=== PATIENT | male | born 1965 | race African-American/Black ===

== ENCOUNTER 2017-09-17 10:30 | Emergency (ER) | payer OTHER ==
[2017-09-17 10:44] VITALS: BP 132/91
--- NOTE | 2017-09-17 13:32 | Ultrasound Report ---
FINAL REPORT EXAM: US SOFT TISSUE HEAD AND NECK HISTORY: swelling r/o abscess , lump in posterior neck for 2-3 months getting larger TECHNIQUE: Ultrasound examination of the posterior neck PRIORS: None. FINDINGS: There is a nonspecific complex heterogeneous hypoechoic lesion 2 mm deep to the skin surface. Measurements are approximately 17 x 11 x 10 mm. A small linear echogenic focus within this lesion may be calcification. Margins are partially smooth and slightly lobulated. Color Doppler imaging demonstrates no evidence of lesional or adjacent hyperemia. IMPRESSION: Nonspecific superficial nodule may be solid and/or complex cystic
--- NOTE | 2017-09-17 13:57 | Emergency Department Report ---
- General Chief complaint: Skin/Abscess/Foreign Body Stated complaint: LUMP ON BACK OF NECK Time Seen by Provider: 09/17/17 12:42 Source: patient Mode of arrival: Ambulatory Limitations: No Limitations - History of Present Illness Initial comments: This is a 51-year-old male nontoxic, well nourished in appearance, no acute signs of distress presents to the ED with c/o of lump in the back of the neck. Patient stated this increase and decreases in size for the past few months. Patient denies any pus, drainage, fever, chills, headache, stiff neck, pain to the area, numbness, tingling, abdominal pain. Patient denies any allergies or significant past medical history MD complaint: other (cyst) -: month(s) Location: neck Severity: mild Severity scale (0 -10): 0 Consistency: intermittent Improves with: none Worsens with: none Context: none Associated symptoms: denies other symptoms Treatments Prior to Arrival: none - Related Data Previous Rx's Medication Instructions Recorded Last Taken Type Pantoprazole [Protonix TAB] 40 mg PO DAILY #30 tablet 05/23/17 Unknown Rx Allergies Allergy/AdvReac Type Severity Reaction Status Date / Time No Known Allergies Allergy Verified 09/17/17 10:42 Abscess Boil HPI - HPI Chief Complaint: Skin/Abscess/Foreign Body Stated Complaint: LUMP ON BACK OF NECK Time Seen by Provider: 09/17/17 12:42 Home Medications: Previous Rx's Medication Instructions Recorded Last Taken Type Pantoprazole [Protonix TAB] 40 mg PO DAILY #30 tablet 05/23/17 Unknown Rx Allergies/Adverse Reactions: Allergies Allergy/AdvReac Type Severity Reaction Status Date / Time No Known Allergies Allergy Verified 09/17/17 10:42 ED Review of Systems ROS: Stated complaint: LUMP ON BACK OF NECK Other details as noted in HPI Constitutional: denies: chills, fever Eyes: denies: eye pain, eye discharge, vision change ENT: denies: ear pain, throat pain Respiratory: denies: cough, shortness of breath, wheezing Cardiovascular: denies: chest pain, palpitations Endocrine: no symptoms reported Gastrointestinal: denies: abdominal pain, nausea, diarrhea Genitourinary: denies: urgency, dysuria Musculoskeletal: denies: back pain, joint swelling, arthralgia Skin: denies: rash, lesions Neurological: denies: headache, weakness, paresthesias Psychiatric: denies: anxiety, depression Hematological/Lymphatic: denies: easy bleeding, easy bruising ED Past Medical Hx - Past Medical History Previous Medical History?: No - Surgical History Past Surgical History?: No - Social History Smoking Status: Current Every Day Smoker Substance Use Type: Alcohol - Medications Home Medications: Home Medications Medication Instructions Recorded Confirmed Last Taken Type Pantoprazole [Protonix TAB] 40 mg PO DAILY #30 tablet 05/23/17 Unknown Rx ED Physical Exam - General Limitations: No Limitations General appearance: alert, in no apparent distress - Head Head exam: Present: atraumatic, normocephalic - Eye Eye exam: Present: normal appearance - ENT ENT exam: Present: mucous membranes moist - Neck Neck exam: Present: normal inspection, full ROM, other (Nodular cyst to posterior neck region. No induration or flutance ntoed. Nontender. Mobile.). Absent: tenderness, meningismus, lymphadenopathy, thyromegaly - Respiratory Respiratory exam: Present: normal lung sounds bilaterally. Absent: respiratory distress, wheezes, rales, rhonchi, stridor, chest wall tenderness, accessory muscle use, decreased breath sounds, prolonged expiratory - Cardiovascular Cardiovascular Exam: Present: regular rate, normal rhythm, normal heart sounds. Absent: irregular rhythm, systolic murmur, diastolic murmur, rubs, gallop - GI/Abdominal GI/Abdominal exam: Present: soft, normal bowel sounds - Rectal Rectal exam: Present: deferred - Extremities Exam Extremities exam: Present: normal inspection - Back Exam Back exam: Present: normal inspection - Neurological Exam Neurological exam: Present: alert, oriented X3 - Psychiatric Psychiatric exam: Present: normal affect, normal mood - Skin Skin exam: Present: warm, dry, intact, normal color. Absent: rash ED Course Vital Signs 09/17/17 10:42 Temperature 98.6 F Pulse Rate 105 H Respiratory 20 Rate Blood Pressure 132/91 O2 Sat by Pulse 98 Oximetry - Reevaluation(s) Reevaluation #1: 09/17/17 13:56 Patient is speaking in full sentences with no signs of distress noted. ED Medical Decision Making - Medical Decision Making this is a 51-year-old male that presents with nodular cyst. Patient is stable and was examined by me. There is no induration or fluctuance. No signs of abscess formation. Ultrasound obtained and dictated by radiologist with confirmation of a nodular cyst. Patient was notified of results with no questionable dictation. She was instructed to Follow-up with a primary care doctor/general surgeon in 3-5 days or if symptoms worsen and continue return to emergency room as soon as possible. At time of discharge, the patient does not seem toxic or ill in appearance. No acute signs of distress noted. Patient agrees to discharge treatment plan of care. No further questions noted by the patient. Critical care attestation.: If time is entered above; I have spent that time in minutes in the direct care of this critically ill patient, excluding procedure time. ED Disposition Clinical Impression: Cyst of neck Disposition: DC- TO HOME OR SELFCARE Is pt being admited?: No Does the pt Need Aspirin: No Condition: Stable Additional Instructions: Follow-up with a primary care doctor/general surgeon in 3-5 days or if symptoms worsen and continue return to emergency room as soon as possible. Referrals: PRIMARY MD BING [Primary Care Provider] - 3-5 Days SCOTTY DENNEY MD [Staff Physician] - 3-5 Days ANDRZEJ JACKMAN DO [Staff Physician] - 3-5 Days [facility] [Outside] - 3-5 Days [facility] [Outside] - 3-5 Days Forms: Work/School Release Form(ED)
== END 2017-09-17 14:07 | disposition home or self-care (01) ==
LOC: ED 10:30
DX: R22.1 Localized swelling, mass and lump, neck (principal)
CPT/HCPCS: 76536; 99283

== ENCOUNTER 2019-02-03 10:32 | Emergency (ER) | payer OTHER ==
[2019-02-03 10:44] VITALS: BP 122/92
[2019-02-03] MEDS ORDERED: PROVENTIL IH ONE (11:12)
[2019-02-03] MEDS ORDERED: SOLU-Medrol IM ONE (11:13)
--- NOTE | 2019-02-03 11:15 | Emergency Department Report ---
ED General Adult HPI - General Chief complaint: Dyspnea/Respdistress Stated complaint: NANETTE Time Seen by Provider: 02/03/19 10:55 Source: patient Mode of arrival: Ambulatory Limitations: No Limitations - History of Present Illness Initial comments: Patient presents to the emergency department with the chief complaint shortness of breath that has become progressively worse for the last month. Patient states prior to last month he did have shortness of breath but has gotten worse. Patient has a history of smoking for the last 30 years. Patient denies any chest pain, abdominal pain, headache. -: Gradual Severity scale (0 -10): 0 Improves with: none Worsens with: none Associated Symptoms: denies other symptoms Treatments Prior to Arrival: none - Related Data Previous Rx's Medication Instructions Recorded Last Taken Type Pantoprazole [Protonix TAB] 40 mg PO DAILY #30 tablet 05/23/17 Unknown Rx ALBUTEROL Inhaler (OR & NICU) 2 puff IH Q4HR PRN #1 inhalation 02/03/19 Unknown Rx [ProAir HFA Inhaler] predniSONE [Deltasone] 20 mg PO DAILY #15 tablet 02/03/19 Unknown Rx Allergies Allergy/AdvReac Type Severity Reaction Status Date / Time No Known Allergies Allergy Verified 09/17/17 10:42 ED Review of Systems ROS: Stated complaint: NANETTE Other details as noted in HPI Constitutional: denies: chills, fever Eyes: denies: eye pain, eye discharge, vision change ENT: denies: ear pain, throat pain Respiratory: denies: cough, shortness of breath, wheezing Cardiovascular: denies: chest pain, palpitations Endocrine: no symptoms reported Gastrointestinal: denies: abdominal pain, nausea, diarrhea Genitourinary: denies: urgency, dysuria Musculoskeletal: denies: back pain, joint swelling, arthralgia Skin: denies: rash, lesions Neurological: denies: headache, weakness, paresthesias Psychiatric: denies: anxiety, depression Hematological/Lymphatic: denies: easy bleeding, easy bruising ED Past Medical Hx - Past Medical History Previous Medical History?: No - Surgical History Past Surgical History?: No - Social History Smoking Status: Current Every Day Smoker Substance Use Type: Alcohol - Medications Home Medications: Home Medications Medication Instructions Recorded Confirmed Last Taken Type Pantoprazole [Protonix TAB] 40 mg PO DAILY #30 tablet 05/23/17 10/04/17 Unknown Rx ALBUTEROL Inhaler (OR & NICU) 2 puff IH Q4HR PRN #1 inhalation 02/03/19 Unknown Rx [ProAir HFA Inhaler] predniSONE [Deltasone] 20 mg PO DAILY #15 tablet 02/03/19 Unknown Rx ED Physical Exam - General Limitations: No Limitations General appearance: alert, in no apparent distress - Head Head exam: Present: atraumatic, normocephalic - Eye Eye exam: Present: normal appearance - ENT ENT exam: Present: mucous membranes moist - Neck Neck exam: Present: normal inspection - Respiratory Respiratory exam: Present: normal lung sounds bilaterally, wheezes. Absent: respiratory distress - Cardiovascular Cardiovascular Exam: Present: regular rate, normal rhythm. Absent: systolic murmur, diastolic murmur, rubs, gallop - GI/Abdominal GI/Abdominal exam: Present: soft, normal bowel sounds. Absent: distended, tenderness - Rectal Rectal exam: Present: deferred - Extremities Exam Extremities exam: Present: normal inspection - Back Exam Back exam: Present: normal inspection - Neurological Exam Neurological exam: Present: alert, oriented X3, CN II-XII intact. Absent: motor sensory deficit - Psychiatric Psychiatric exam: Present: normal affect, normal mood - Skin Skin exam: Present: warm, dry, intact, normal color. Absent: rash ED Course Vital Signs 02/03/19 02/03/19 10:42 11:44 Temperature 98.3 F Pulse Rate 113 H Pulse Rate [ 110 H Bilateral] Respiratory 20 Rate Respiratory 18 Rate [Bilateral ] Blood Pressure 122/92 [Left] O2 Sat by Pulse 100 Oximetry ED Medical Decision Making - Lab Data Result diagrams: 02/03/19 11:19 02/03/19 11:19 Lab Results 02/03/19 02/03/19 Range/Units 11:19 11:19 WBC 6.5 (4.5-11.0) K/mm3 RBC 3.78 (3.65-5.03) M/mm3 Hgb 8.9 L (11.8-15.2) gm/dl Hct 29.5 L (35.5-45.6) % MCV 78 L (84-94) fl MCH 23 L (28-32) pg MCHC 30 L (32-34) % RDW 25.2 H (13.2-15.2) % Plt Count 361 (140-440) K/mm3 Sodium 139 (137-145) mmol/L Potassium 4.3 (3.6-5.0) mmol/L Chloride 105.2 (98-107) mmol/L Carbon Dioxide 23 (22-30) mmol/L Anion Gap 15 mmol/L BUN 9 (9-20) mg/dL Creatinine 0.7 L (0.8-1.5) mg/dL Estimated GFR > 60 ml/min BUN/Creatinine Ratio 13 % Glucose 144 H (75-100) mg/dL Calcium 9.1 (8.4-10.2) mg/dL Total Bilirubin 0.20 (0.1-1.2) mg/dL AST 20 (5-40) units/L ALT 20 (7-56) units/L Alkaline Phosphatase 70 (35-129) units/L NT-Pro-B Natriuret Pep 27.05 (0-900) pg/mL Total Protein 7.7 (6.3-8.2) g/dL Albumin 4.6 (3.9-5) g/dL Albumin/Globulin Ratio 1.5 % - Radiology Data Radiology results: report reviewed - Medical Decision Making Smoking cessation education given to patient as well as results of work up Critical care attestation.: If time is entered above; I have spent that time in minutes in the direct care of this critically ill patient, excluding procedure time. ED Disposition Clinical Impression: Bronchitis, Encounter for smoking cessation counseling Disposition: TO HOME OR SELFCARE Is pt being admited?: No Does the pt Need Aspirin: No Condition: Stable Instructions: Chronic Bronchitis (ED), How to Stop Smoking (ED) Additional Instructions: return if worse Referrals: EPIFANIO GUSTAFSON MD [Primary Care Provider] - 3-5 Days [facility] [Provider Group] - 3-5 Days [facility] [Provider Group] - 3-5 Days Time of Disposition: 13:37
[2019-02-03 11:26] LABS: Hematocrit 29.5 % (35.5-45.6); Hemoglobin 8.9 gm/dl (11.8-15.2); Mean Corpuscular HGB Conc 30 % (32-34); Mean Corpuscular Volume 78 fl (84-94); Platelet Count 361 K/mm3 (140-440); Red Blood Count 3.78 M/mm3 (3.65-5.03)
[2019-02-03 11:42] LABS: Red Cell Distribution Width 25.2 % (13.2-15.2)
[2019-02-03 11:51] LABS: Alanine Aminotransferase 20 units/L (7-56); Albumin 4.6 g/dL (3.9-5); BUN/Creatinine Ratio 13; Blood Urea Nitrogen 9 mg/dL (9-20); Calcium 9.1 mg/dL (8.4-10.2); Hemolysis Index 11
--- NOTE | 2019-02-03 13:31 | XRay Report ---
CHEST 1 VIEW INDICATION: sob. COMPARISON: None. FINDINGS: Support devices: None. Heart: Within normal limits. Lungs/Pleura: No acute air space or interstitial disease. Additional findings: None. IMPRESSION: No acute abnormality. Signer Name: Ortiz Kaminski MD Signed: 02/03/2019 1:26 PM Workstation Name: [id number]
[2019-02-03 15:46] LABS: Basophils % (Manual) 0 % (0.0-1.8); Total Cells Counted 100
[2019-02-03 15:47] LABS: Hypochromasia 1+
[2019-02-03 15:48] LABS: Anisocytosis 2+
== END 2019-02-03 13:51 | disposition home or self-care (01) ==
LOC: ED 10:32
DX: J40 Bronchitis, not specified as acute or chronic (principal); F17.200 Nicotine dependence, unspecified, uncomplicated; Z71.6 Tobacco abuse counseling; Z79.899 Other long term (current) drug therapy
CPT/HCPCS: 36415; 71045; 80053; 83880; 85007; 85025; 94644; 96372; 99283; J2930

== ENCOUNTER 2019-02-16 10:30 | Emergency (ER) | payer OTHER ==
[2019-02-16 10:41] VITALS: BP 131/83
[2019-02-16 11:41] LABS: Hematocrit 34.3 % (35.5-45.6); Hemoglobin 10.5 gm/dl (11.8-15.2); Mean Corpuscular HGB Conc 31 % (32-34); Mean Corpuscular Volume 80 fl (84-94); Platelet Count 322 K/mm3 (140-440); Red Blood Count 4.27 M/mm3 (3.65-5.03); Red Cell Distribution Width 28.3 % (13.2-15.2)
[2019-02-16 11:44] LABS: Basophils # (Auto) 0.1 K/mm3 (0.0-0.1); Eosinophils # (Auto) 0.2 K/mm3 (0.0-0.4); Eosinophils % (Auto) 1.9 % (0.0-4.3); Monocytes # (Auto) 0.7 K/mm3 (0.0-0.8); Monocytes % (Auto) 7.2 % (0.0-7.3)
[2019-02-16 12:04] LABS: Alanine Aminotransferase 23 units/L (7-56); Albumin 4.1 g/dL (3.9-5); BUN/Creatinine Ratio 13; Blood Urea Nitrogen 9 mg/dL (9-20); Hemolysis Index 1
--- NOTE | 2019-02-16 12:26 | Emergency Department Report ---
ED General Adult HPI - General Chief complaint: GI Bleed Stated complaint: RECTUM BLEEDING/PAIN Time Seen by Provider: 02/16/19 11:20 Source: patient Mode of arrival: Ambulatory Limitations: No Limitations - History of Present Illness Initial comments: Patient presents to the emergency department with a chief complaint of bright red blood per rectum. The patient has had this on and off for the last 2 years with colonoscopy been done last month at [facility] showing polyps and internal hemorrhoids. Patient is scheduled for follow-up colonoscopy here on the for banding of his hemorrhoids. Patient denies any rectal pain, sob, or chest pain -: week(s) Location: buttocks Severity scale (0 -10): 0 Consistency: constant Improves with: none Worsens with: none Associated Symptoms: denies other symptoms Treatments Prior to Arrival: none - Related Data Previous Rx's Medication Instructions Recorded Last Taken Type Pantoprazole [Protonix TAB] 40 mg PO DAILY #30 tablet 05/23/17 Unknown Rx ALBUTEROL Inhaler (OR & NICU) 2 puff IH Q4HR PRN #1 inhalation 02/03/19 Unknown Rx [ProAir HFA Inhaler] predniSONE [Deltasone] 20 mg PO DAILY #15 tablet 02/03/19 Unknown Rx Allergies Allergy/AdvReac Type Severity Reaction Status Date / Time No Known Allergies Allergy Verified 09/17/17 10:42 ED Review of Systems ROS: Stated complaint: RECTUM BLEEDING/PAIN Other details as noted in HPI Constitutional: denies: chills, fever Eyes: denies: eye pain, eye discharge, vision change ENT: denies: ear pain, throat pain Respiratory: denies: cough, shortness of breath, wheezing Cardiovascular: denies: chest pain, palpitations Endocrine: no symptoms reported Gastrointestinal: hematochezia. denies: abdominal pain, nausea, diarrhea Genitourinary: denies: urgency, dysuria Musculoskeletal: denies: back pain, joint swelling, arthralgia Skin: denies: rash, lesions Neurological: denies: headache, weakness, paresthesias Psychiatric: denies: anxiety, depression Hematological/Lymphatic: denies: easy bleeding, easy bruising ED Past Medical Hx - Past Medical History Previous Medical History?: No - Surgical History Past Surgical History?: No - Social History Smoking Status: Current Every Day Smoker Substance Use Type: Alcohol - Medications Home Medications: Home Medications Medication Instructions Recorded Confirmed Last Taken Type Pantoprazole [Protonix TAB] 40 mg PO DAILY #30 tablet 05/23/17 10/04/17 Unknown Rx ALBUTEROL Inhaler (OR & NICU) 2 puff IH Q4HR PRN #1 inhalation 02/03/19 Unknown Rx [ProAir HFA Inhaler] predniSONE [Deltasone] 20 mg PO DAILY #15 tablet 02/03/19 Unknown Rx ED Physical Exam - General Limitations: No Limitations General appearance: alert, in no apparent distress - Head Head exam: Present: atraumatic, normocephalic - Eye Eye exam: Present: normal appearance, PERRL, EOMI - ENT ENT exam: Present: mucous membranes moist - Neck Neck exam: Present: normal inspection - Respiratory Respiratory exam: Present: normal lung sounds bilaterally. Absent: respiratory distress - Cardiovascular Cardiovascular Exam: Present: regular rate, normal rhythm. Absent: systolic murmur, diastolic murmur, rubs, gallop - GI/Abdominal GI/Abdominal exam: Present: soft, normal bowel sounds. Absent: distended, tenderness - Rectal Rectal exam: Present: deferred, heme (+) stool, hemorrhoids - Extremities Exam Extremities exam: Present: normal inspection - Back Exam Back exam: Present: normal inspection - Neurological Exam Neurological exam: Present: alert, oriented X3, CN II-XII intact. Absent: motor sensory deficit - Psychiatric Psychiatric exam: Present: normal affect, normal mood - Skin Skin exam: Present: warm, dry, intact, normal color. Absent: rash ED Course Vital Signs 02/16/19 10:39 Temperature 98.0 F Pulse Rate 106 H Respiratory 18 Rate Blood Pressure 131/83 O2 Sat by Pulse 99 Oximetry ED Medical Decision Making - Lab Data Result diagrams: 02/16/19 11:22 02/16/19 11:22 Lab Results 02/16/19 02/16/19 Range/Units 11:22 11:22 WBC 9.6 (4.5-11.0) K/mm3 RBC 4.27 (3.65-5.03) M/mm3 Hgb 10.5 L (11.8-15.2) gm/dl Hct 34.3 L (35.5-45.6) % MCV 80 L (84-94) fl MCH 25 L (28-32) pg MCHC 31 L (32-34) % RDW 28.3 H (13.2-15.2) % Plt Count 322 (140-440) K/mm3 [place] % (Auto) 7.2 (0.0-7.3) % Eos % (Auto) 1.9 (0.0-4.3) % [place] # 0.7 (0.0-0.8) K/mm3 Eos # 0.2 (0.0-0.4) K/mm3 Baso # 0.1 (0.0-0.1) K/mm3 Seg Neutrophils % 71.7 H (40.0-70.0) % Seg Neutrophils # 6.8 (1.8-7.7) K/mm3 Sodium 140 (137-145) mmol/L Potassium 3.9 (3.6-5.0) mmol/L Chloride 104.6 (98-107) mmol/L Carbon Dioxide 23 (22-30) mmol/L Anion Gap 16 mmol/L BUN 9 (9-20) mg/dL Creatinine 0.7 L (0.8-1.5) mg/dL Estimated GFR > 60 ml/min BUN/Creatinine Ratio 13 % Glucose 93 (75-100) mg/dL Calcium 9.0 (8.4-10.2) mg/dL Total Bilirubin 0.30 (0.1-1.2) mg/dL AST 20 (5-40) units/L ALT 23 (7-56) units/L Alkaline Phosphatase 62 (35-129) units/L Total Protein 7.1 (6.3-8.2) g/dL Albumin 4.1 (3.9-5) g/dL Albumin/Globulin Ratio 1.4 % - Medical Decision Making Patient's hemoglobin has increased from prior study Patient performed to continue follow-up with GI Critical care attestation.: If time is entered above; I have spent that time in minutes in the direct care of this critically ill patient, excluding procedure time. ED Disposition Clinical Impression: Rectal bleeding, Hemorrhoid Disposition: TO HOME OR SELFCARE Is pt being admited?: No Does the pt Need Aspirin: No Condition: Stable Instructions: Rectal Bleeding (ED), Hemorrhoids (ED) Additional Instructions: Please keep your colonoscopy was scheduled for March 04 or call to see if it can be done earlier Referrals: EPIFANIO GUSTAFSON MD [Primary Care Provider] - 3-5 Days [facility] [Provider Group] - 3-5 Days Forms: Accompanied Note Time of Disposition: 13:47
[2019-02-16 15:33] LABS: Anisocytosis 2+; Hypochromasia 1+; Total Cells Counted 100
[2019-02-16 15:34] LABS: Dimorphic RBC Yes
== END 2019-02-16 13:57 | disposition home or self-care (01) ==
LOC: ED 10:30
DX: K64.9 Unspecified hemorrhoids (principal); K62.5 Hemorrhage of anus and rectum; F17.200 Nicotine dependence, unspecified, uncomplicated; Z79.899 Other long term (current) drug therapy
CPT/HCPCS: 36415; 80053; 85007; 85025

== ENCOUNTER 2019-02-17 09:42 | Outpatient (CLI) | payer OTHER ==
[2019-02-17 11:23] LABS: Hematocrit 35.2 % (35.5-45.6); Mean Corpuscular HGB Conc 31 % (32-34); Mean Corpuscular Volume 80 fl (84-94); Platelet Count 323 K/mm3 (140-440); Red Blood Count 4.41 M/mm3 (3.65-5.03)
[2019-02-17 11:24] LABS: Red Cell Distribution Width 28.3 % (13.2-15.2)
[2019-02-17 12:50] LABS: Chol/HDL Ratio 4.63 %
[2019-02-20 12:45] LABS: Vitamin D, 25-OH, D2 <4 ng/mL
== END 2019-02-17 09:43 | disposition home or self-care (01) ==
LOC: LAB 09:42
PROVIDERS: ATTEND Internal Medicine
DX: Z13.220 Encounter for screening for lipoid disorders (principal); Z13.21 Encounter for screening for nutritional disorder; Z13.1 Encounter for screening for diabetes mellitus; Z12.5 Encounter for screening for malignant neoplasm of prostate; D64.9 Anemia, unspecified
CPT/HCPCS: 36415; 80061; 82306; 82607; 82728; 82747; 83036; 83550; 84153; 84443; 85027

== ENCOUNTER 2019-03-04 07:32 | Day surgery (SDC) | payer OTHER ==
[2019-03-04] MEDS ORDERED: NACL 0.9% 1000 ML 1,000 ML IV SCH (08:00)
--- NOTE | 2019-03-04 09:31 | Anesthesia Consultation ---
Anesthesia Consult and Med Hx Date of service: 03/04/19 - Airway Anesthetic Teeth Evaluation: Poor (multiple missing teeth) ROM Head & Neck: Adequate Mental/Hyoid Distance: Adequate Mallampati Class: Class II Intubation Access Assessment: Probably Good - Pre-Operative Health Status ASA Pre-Surgery Classification: ASA2 - Pulmonary Hx Smoking: Yes (10 a day) Hx Asthma: Yes - Central Nervous System Hx Psychiatric Problems: Yes (anxiety/depression) - Gastrointestinal Hx Gastroesophageal Reflux Disease: No (h/o colon polyps)
--- NOTE | 2019-03-04 09:32 | Anesthesia Day of Surgery ---
Anesthesia Day of Surgery - Day of Surgery Patient Examined: Yes Patient H&P Reviewed: Yes Patient is NPO: Yes
[2019-03-04] MEDS ORDERED: DIPRIVAN 10 MG/ML IV ONE (10:06)
[2019-03-04] MEDS ORDERED: XYLOCAINE 2% UROJET UR ONE (10:26)
[2019-03-04] MEDS ORDERED: XYLOCAINE 2% UROJET ONE (10:27)
[2019-03-04] MEDS ORDERED: XYLOCAINE MPF 2% ONE (10:30)
--- NOTE | 2019-03-04 10:34 | Post Operative Note ---
Date of procedure: 03/04/19 Pre-op diagnosis: Hematochezia Post-op diagnosis: other (Internal hemorrhoids s/p banding; external hemorrhoids) Findings: Internal hemorrhoids s/p banding External hemorrhoids Procedure: Colonoscopy with banding of internal hemorrhoids Anesthesia: MAC Surgeon: SABAS AYALA Estimated blood loss: minimal Pathology: none Specimen disposition: to lab Condition: stable Disposition: same day
--- NOTE | 2019-03-04 10:38 | Operative Report ---
Operative Report Operative Report: Colonoscopy Procedure Note with banding of internal hemorrhoids Date of procedure: 03/04/2019 Endoscopist: Juve Rondon Pre-op diagnosis/indication: Hematochezia Post-op diagnosis: Internal hemorrhoids s/p banding; external hemorrhoids MEDICATIONS: MAC COMPLICATIONS: No immediate complications ESTIMATED BLOOD LOSS: Minimal DESCRIPTION OF PROCEDURE: After consent was obtained, the patient was placed in the left lateral decubitis position. The olympus colonoscope was inserted into the rectum under direct vision, and advanced to the cecum without difficulty. The quality of prep was good. The patient tolerated the procedure well. The patient's vital signs were monitored continuously throughout the procedure. FINDINGS: There were medium to large sized internal hemorrhoids. Three bands were placed successfully. External hemorrhoids. Otherwise, the colon appeared normal. IMPRESSION: 1. Internal hemorrhoids s/p banding 2. External hemorrhoids 3. Otherwise, normal colonoscopy RECOMMENDATIONS: -hemorrhoidal suppository prn -repeat colonoscopy for surveillance for personal history of adenomatous polyp in 5 years
[2019-03-04 10:55] VITALS: BP 124/86
--- NOTE | 2019-03-04 11:22 | Short Stay Summary ---
Short Stay Documentation Date of service: 03/04/19 Narrative H&P: Pt presents for colonoscopy due to hematochezia; intermittent brbpr, becoming more frequent. see office note for more details - History Principal diagnosis: Hematochezia H&P: obtained from office Past Medical History: other Past Surgical History: Other Social history: other - Allergies and Medications Current Medications: Allergies No Known Allergies Allergy (Verified 09/17/17 10:42) Home Medications Medication Instructions Recorded Confirmed Last Taken Type No Known Home Medications [No 03/04/19 03/04/19 Unknown History Reported Home Medications] Active Medications Sodium Chloride (Nacl 0.9% 1000 Ml) 1,000 mls @ 50 mls/hr IV DIRECT PACO Last Admin: 03/04/19 10:01 Dose: 50 mls/hr Documented by: - Physical exam General appearance: no acute distress Lungs: Clear to auscultation Heart: Regular rate Gastrointestinal: normal - Brief post op/procedure progress note Date of procedure: 03/04/19 Pre-op diagnosis: hematochezia Post-op diagnosis: same Procedure: Colonoscopy with banding of internal hemorrhoids Anesthesia: MAC Findings: Internal hemorrhoids s/p banding external hemorrhoids Surgeon: SABAS AYALA Estimated blood loss: minimal Pathology: none Condition: stable - Disposition Condition at discharge: Good Disposition: DC-01 TO HOME OR SELFCARE Short Stay Discharge Plan Additional Instructions: Post Sedation D/C Instructions When you return home you may resume your regular diet unless otherwise directed. -Go directly home from the hospital and rest quietly. You may resume normal activities tomorrow. -Do NOT drive, return to work, operate any machinery or make any important personal or business decisions today. -Do NOT drink any alcohol or take nerve or sleeping drugs. They add to the effects of the medicine still present in your body. Follow up with: EPIFANIO GUSTAFSON MD [Primary Care Provider] - 7 Days
[2019-03-04] MEDS ORDERED: NACL 0.9% 1000 ML 1,000 ML ONE (13:20)
== END 2019-03-04 11:20 | disposition home or self-care (01) ==
LOC: GIO 07:32
PROVIDERS: ATTEND Internal Medicine Gastroenterology
DX: K64.8 Other hemorrhoids (principal); K92.1 Melena; K59.00 Constipation, unspecified; K64.4 Residual hemorrhoidal skin tags; J45.909 Unspecified asthma, uncomplicated; K21.9 Gastro-esophageal reflux disease without esophagitis; F32.9 Major depressive disorder, single episode, unspecified; F41.9 Anxiety disorder, unspecified; F17.210 Nicotine dependence, cigarettes, uncomplicated; Z98.890 Other specified postprocedural states; Z86.010 Personal history of colon polyps
CPT/HCPCS: 45398; J2704; J7030

== ENCOUNTER 2019-03-31 02:41 | Emergency (ER) | payer OTHER ==
--- NOTE | 2019-03-31 07:55 | Emergency Department Report ---
HPI - General Chief Complaint: Headache Time Seen by Provider: 03/31/19 07:29 - HPI HPI: Patient is a 53-year-old male comes to the ER complaining of a headache off and on for 2 weeks. He denies trauma. H He denies fever chills or photophobia. He states that he is just concerned based on his friends have been telling him so he comes to the ER concerned that he is having a stroke and is requesting a CT. Patient's blood pressure is mildly elevated but he has never been told that he has had hypertension or required any medications for it in the past. He has no nausea vomiting or photophobia. no chest pain or shortness of breath. ED Past Medical Hx - Past Medical History Previous Medical History?: Yes Hx Asthma: Yes - Surgical History Past Surgical History?: No - Family History Family history: no significant - Social History Smoking Status: Current Every Day Smoker - Medications Home Medications: Home Medications Medication Instructions Recorded Confirmed Last Taken Type Fluticasone [Flonase] 1 spray NS QDAY #1 bottle 03/31/19 Unknown Rx Ibuprofen [Motrin] 800 mg PO Q8HR PRN #30 tablet 03/31/19 Unknown Rx predniSONE [Deltasone] 20 mg PO DAILY #5 tablet 03/31/19 Unknown Rx ED Review of Systems ROS: Stated complaint: HEADACHE Other details as noted in HPI Comment: All other systems reviewed and negative Physical Exam - Physical Exam Vital Signs: Vital Signs 03/31/19 02:45 Temperature 97.7 F Pulse Rate 95 H Respiratory 18 Rate Blood Pressure 137/104 O2 Sat by Pulse 97 Oximetry Physical Exam: alert and oriented no focal deficit no pronotor drift ambulatory drove to er no facial droop CN intact s1s2 lungs cta abd snt no erythema of throat mild max sinus tenderness- denies cough or congestion ED Course Vital Signs 03/31/19 02:45 Temperature 97.7 F Pulse Rate 95 H Respiratory 18 Rate Blood Pressure 137/104 O2 Sat by Pulse 97 Oximetry ED Medical Decision Making - Radiology Data Radiology results: report reviewed, image reviewed - Medical Decision Making CT negative no fever no sign history ambulatory non toxic appearance no focal neuro deficit no hx of same no head trauma Vital Signs 03/31/19 02:45 Temperature 97.7 F Pulse Rate 95 H Respiratory 18 Rate Blood Pressure 137/104 O2 Sat by Pulse 97 Oximetry medicated for pain dc home with dc plan of care - Differential Diagnosis ro intracranial process Critical care attestation.: If time is entered above; I have spent that time in minutes in the direct care of this critically ill patient, excluding procedure time. ED Disposition Clinical Impression: Headache, Elevated blood pressure reading, Sinusitis Disposition: DC-01 TO HOME OR SELFCARE Is pt being admited?: No Does the pt Need Aspirin: No Condition: Stable Instructions: Sinusitis (ED), Acute Headache (ED), Low Sodium Diet (ED) Additional Instructions: meds as ordered follow your blood pressure follow up with pcp referral given below tylenol may be used at home low salt diet hydrate well with water Prescriptions: predniSONE [Deltasone] 20 mg PO DAILY #5 tablet Fluticasone [Flonase] 1 spray NS QDAY #1 bottle Ibuprofen [Motrin] 800 mg PO Q8HR PRN #30 tablet PRN Reason: Pain, Moderate (4-6) Referrals: DIONNE ESCOBAR MD [Staff Physician] - 3-5 Days Time of Disposition: 09:10
--- NOTE | 2019-03-31 08:31 | Cat Scan Report ---
CT HEAD WITHOUT CONTRAST INDICATION / CLINICAL INFORMATION: Left-sided headaches for 3 weeks. TECHNIQUE: Axial imaging performed from the skull apex through the skull base without the use of cont rast. Sagittal and coronal reformatted images. All CT scans at this location are performed using CT dose reduction for ALARA by means of automated exposure control. COMPARISON: None available. FINDINGS: CEREBRAL PARENCHYMA: The brain density and its ibarra-white interface are within normal limits. There a re 2 chronic focal infarcts or dilated perivascular spaces in the right basal ganglia measuring 4 mm and 7 mm. I favor dilated perivascular spaces. The remaining brain parenchyma is unremarkable. HEMORRHAGE: None. EXTRA-AXIAL SPACES: Normal in size and morphology for the patient's age. VENTRICULAR SYSTEM: Normal in size and morphology for the patient's age. MIDLINE SHIFT OR HERNIATION: None. CEREBELLUM / BRAINSTEM: No significant abnormality. CALVARIUM: No significant abnormality. ORBITS: Normal as visualized. PARANASAL SINUSES / MASTOID AIR CELLS: Mild mucosal thickening is noted in the ethmoid sinuses and vi sualized superior maxillary sinuses. The frontal sinuses, sphenoid sinuses and mastoid air cells are well-aerated. SOFT TISSUES of HEAD: No significant abnormality. ADDITIONAL FINDINGS: None. IMPRESSION: No acute intracranial abnormality. Mild sinus disease, likely chronic. Signer Name: Alvin Cabrera Jr, MD Signed: 03/31/2019 8:27 AM Workstation Name: [id number]
[2019-03-31] MEDS ORDERED: DECADRON IM ONE (09:11)
[2019-03-31 10:05] VITALS: BP 113/78
== END 2019-03-31 10:05 | disposition home or self-care (01) ==
LOC: ED 02:41
DX: J32.0 Chronic maxillary sinusitis (principal); R03.0 Elevated blood-pressure reading, without diagnosis of hypertension; J45.909 Unspecified asthma, uncomplicated; F17.200 Nicotine dependence, unspecified, uncomplicated
CPT/HCPCS: 70450; 96372; 99283; J1100